=== PATIENT | female | born 1990 | race Caucasian/White ===

== ENCOUNTER 2018-01-18 09:27 | Emergency (ER) | payer OTHER ==
[~2018-01-18] VITALS: Ht 162.6 cm; Wt 74.4 kg
[2018-01-18] MEDS ORDERED: Sudogest60 MG PO (11:12)
[2018-01-18] MEDS ORDERED: Floxin10 ML RIGHTEAR (23:11)
[2018-01-18] MEDS ORDERED: Amoxicillin500 MG PO (23:11)
[2018-01-18] MEDS ORDERED: Flonase 0.05% N16 GM (23:11)
== END 2018-01-18 11:27 | disposition home or self-care (01) ==
LOC: ER 09:27
DX: H93.8X3 Other specified disorders of ear, bilateral (principal); J06.9 Acute upper respiratory infection, unspecified; Z88.2 Allergy status to sulfonamides; Z87.891 Personal history of nicotine dependence; H66.011 Acute suppurative otitis media with spontaneous rupture of ear drum, right ear
CPT/HCPCS: 96372; 99282; 99283; J1885

== ENCOUNTER 2018-01-18 22:15 | Emergency (ER) | payer OTHER ==
[~2018-01-18] VITALS: Ht 162.6 cm; Wt 74.4 kg
[~2018-01-18 22:15] MED LIST: Sudogest60 MG PO
[2018-01-18] MEDS ORDERED: Amoxicillin500 MG PO (23:11)
[2018-01-18] MEDS ORDERED: Flonase 0.05% N16 GM (23:11)
[2018-01-18] MEDS ORDERED: Floxin10 ML RIGHTEAR (23:11)
== END 2018-01-18 23:31 | disposition home or self-care (01) ==
LOC: ER 22:15
DX: H66.011 Acute suppurative otitis media with spontaneous rupture of ear drum, right ear (principal); Z88.2 Allergy status to sulfonamides; Z87.891 Personal history of nicotine dependence
CPT/HCPCS: 96372; 99283; J1885